=== PATIENT | female | born 1935 | race Caucasian/White ===

== ENCOUNTER 2018-09-09 15:36 | Emergency (ER) | payer MEDICARE, OTHER ==
[~2018-09-09] VITALS: Ht 162.6 cm; Wt 73.4 kg
[~2018-09-09 15:36] MED LIST: CARV12.579 PO; FURO-110 PO; METF500T24 PO; PIOG30TA12 PO; POTA8TAB2 PO
[2018-09-09 16:36] VITALS: Ht 162.6 cm; Wt 73.4 kg
[2018-09-09] MEDS ORDERED: APIX2.5T PO (20:14)
[2018-09-09] MEDS ORDERED: EMPA10TA PO (20:14)
[2018-09-09] MEDS ORDERED: LISI-471 PO (20:15)
[2018-09-09] MEDS ORDERED: CARV12.579 PO (20:15)
[2018-09-09] MEDS ORDERED: METF500T24 PO (20:16)
[2018-09-09] MEDS ORDERED: METF850T13 PO (20:16)
[2018-09-09] MEDS ORDERED: FURO20TA3 PO (20:17)
[2018-09-09] MEDS ORDERED: SITA100T11 PO (20:17)
[2018-09-09] MEDS ORDERED: POTA8CAP PO (20:18)
--- NOTE | 2018-09-09 21:02 | ERD ---
ER Documentation Chief Complaint Chief Complaint per dtr pt is forgetful x2 days; pt awake/alert/orientedx3/ambulatory HPI Patient is an 83-year-old female with CHF and diabetes who presents with confusion. The patient is having some short-term memory issues per the daughter. She sometimes forgets what date it is. This started a few months ago. She was seen by the primary doctor today who sent the patient to the emergency department. The patient has no history of dementia and no pain. Upon review of old medical records this is the patient's second visit to the ER since 2012. She does have a primary doctor. ROS All systems reviewed and are negative except as per history of present illness. Medications Home Meds Reported Medications Potassium Chloride* (Potassium Chloride*) Unknown Strength Capsule.er, 1 TAB PO DAILY, CAP 09/09/18 Furosemide* (Furosemide*) 20 Mg Tablet, 20 MG PO DAILY, #60 TAB 09/09/18 Sitagliptin* (Januvia*) 100 Mg Tablet, 100 MG PO DAILY, #30 TAB 09/09/18 Metformin Hcl* (Metformin Hcl*) 850 Mg Tablet, 850 MG PO WITH BREAKFAST DINNE, #60 TAB 09/09/18 Carvedilol* (Carvedilol*) 12.5 Mg Tablet, 12.5 MG PO DAILY, #60 TAB 09/09/18 Lisinopril* (Lisinopril*) 20 Mg Tablet, 20 MG PO DAILY, #30 TAB 09/09/18 Apixaban* (Eliquis*) 2.5 Mg Tablet, 2.5 MG PO BID, TAB 09/09/18 Empagliflozin (Jardiance) 10 Mg Tablet, 10 MG PO DAILY, TAB 09/09/18 Discontinued Reported Medications Metformin Hcl* (Metformin Hcl*) 500 Mg Tablet, 500 MG PO WITH BREAKFAST DINNE, #60 TAB 09/09/18 Metformin Hcl* (Metformin Hcl*) 500 Mg Tablet, 500 MG PO BID 01/30/13 Carvedilol* (Carvedilol*) 12.5 Mg Tablet, 12.5 MG PO DAILY 01/30/13 Potassium Chloride* (Klor-Con*) 8 Meq Tablet.sa, 8 MEQ PO DAILY 01/30/13 Furosemide* (Lasix*) 20 Mg Tablet, 20 MG PO DAILY 01/30/13 Pioglitazone Hcl* (Actos*) 30 Mg Tablet, 30 MG PO DAILY 01/30/13 Allergies Allergies: Coded Allergies: codeine (Verified Allergy, Mild, 09/09/18) PMhx/Soc History of Surgery: No Anesthesia Reaction: No Hx Neurological Disorder: No Hx Respiratory Disorders: No Hx Cardiac Disorders: Yes (HTN) Hx Psychiatric Problems: No Hx Miscellaneous Medical Probl: No Hx Alcohol Use: No Hx Substance Use: No Hx Tobacco Use: No Smoking Status: Never smoker FmHx Family History: diabetes Physical Exam Vitals Vital Signs Date Temp Pulse Resp B/P (MAP) Pulse Ox O2 O2 Flow FiO2 Time Delivery Rate 09/09/18 97.5 73 14 162/72 97 21:04 (102) 09/09/18 97.5 67 14 168/88 97 20:22 (114) 09/09/18 97.5 80 20 199/70 97 19:15 (113) 09/09/18 97.5 77 20 158/75 97 18:56 (102) 09/09/18 97.5 70 20 158/75 97 16:36 (102) Physical Exam Const: No acute distress Head: Atraumatic Eyes: Normal Conjunctiva ENT: Normal External Ears, Nose and Mouth. Neck: Full range of motion. No meningismus. Resp: Clear to auscultation bilaterally Cardio: Regular rate and rhythm, no murmurs Abd: Soft, non tender, non distended. Normal bowel sounds Skin: No petechiae or rashes Back: No midline or flank tenderness Ext: No cyanosis, or edema Neur: Awake and alert, awake alert and oriented x3, no slurred speech, cranial nerves II through XII are intact, strength is 5 out of 5 in all 4 extremities Psych: Normal Mood and Affect Result Diagram: 09/09/18193909/09/181939 Results 24 hrs Laboratory Tests Test 09/09/18 19:10 09/09/18 19:35 09/09/18 19:40 Urine Color YELLOW Urine Clarity CLEAR Urine pH 5.0 Urine Specific [place] 1.018 Urine Ketones TRACE mg/dL Urine Nitrite NEGATIVE mg/dL Urine Bilirubin NEGATIVE mg/dL Urine Urobilinogen NEGATIVE mg/dL Urine Leukocyte Esterase NEGATIVE Fannie/ul Urine Hemoglobin NEGATIVE mg/dL Urine Glucose 3+ mg/dL Urine Total Protein NEGATIVE mg/dl Urine Opiates Screen NEGATIVE Urine Barbiturates NEGATIVE Urine Amphetamines Screen NEGATIVE Urine Benzodiazepines Screen NEGATIVE Urine Cocaine Screen NEGATIVE Urine Cannabinoids NEGATIVE Bedside Glucose 132 mg/dL White Blood Count 7.2 10^3/ul Red Blood Count 4.76 10^6/ul Hemoglobin 11.7 g/dl Hematocrit 38.6 % Mean Corpuscular Volume 81.1 fl Mean Corpuscular Hemoglobin 24.6 pg Mean Corpuscular 30.3 g/dl Hemoglobin Concent Red Cell Distribution Width 15.7 % Platelet Count 175 10^3/UL Mean Platelet Volume 12.6 fl Immature Granulocytes % 0.400 % Neutrophils % 64.8 % Lymphocytes % 16.3 % Monocytes % 11.6 % Eosinophils % 5.5 % Basophils % 1.4 % Nucleated Red Blood Cells % 0.0 /100WBC Immature Granulocytes # 0.030 10^3/ul Neutrophils # 4.7 10^3/ul Lymphocytes # 1.2 10^3/ul Monocytes # 0.8 10^3/ul Eosinophils # 0.4 10^3/ul Basophils # 0.1 10^3/ul Nucleated Red Blood Cells # 0.0 10^3/ul Prothrombin Time 14.0 Sec Prothrombin Time Ratio 1.1 INR International 1.07 Normalized Ratio Activated Partial Thromboplast 35.0 Sec Time Sodium Level 140 mmol/L Potassium Level 3.8 mmol/L Chloride Level 101 mmol/L Carbon Dioxide Level 27 mmol/L Anion Gap 12 Blood Urea Nitrogen 17 mg/dl Creatinine 0.65 mg/dl Est Glomerular Filtrat mL/min Rate mL/min Glucose Level 127 mg/dl Hemoglobin A1c 8.5 % Calcium Level 9.8 mg/dl Troponin I 0.015 ng/ml Triglycerides Level 146 mg/dl Cholesterol Level 180 mg/dl LDL Cholesterol, Calculated 101 mg/dl HDL Cholesterol 50 mg/dl Cholesterol/HDL Ratio 3.6 RATIO Procedures/MDM EKG read by me: Rate/Rhythm: Bifascicular block at a rate of 70 Intervals: Prolonged QTC Impression: Fascicular block CT brain read by radiology. Chest x-ray read by radiology. Patient is a 83-year-old female who presents with short-term memory issues. She is awake alert and oriented x3 in the emergency department and very pleasant without signs of stroke. Workup was basically negative including laboratory studies, chest x-ray, and CT scan of the brain. I do not believe the patient requires admission to the hospital at this time. I doubt stroke or mass. I doubt acute cystitis or sepsis. The patient will be discharged but will need to follow-up closely with her primary doctor. She can return sooner for any worsening symptoms. The patient understands the plan and is okay for discharge at this time she is being discharged into the care of her daughter. Departure Diagnosis: Primary Impression: Altered level of consciousness Condition: Fair Patient Instructions: Altered Loc Referrals: Your doctor Additional Instructions: Call your primary care doctor TOMORROW for an appointment during the next 1-2 days.See the doctor sooner or return here if your condition worsens before your appointment time. CHRISTINA TORRES MD Sep 09, 2018 21:02
[2018-09-09 21:04] VITALS: BP 162/72; PULSE 73; RESP 14
== END 2018-09-09 21:17 | disposition home or self-care (01) ==
LOC: E/R 15:36
DX: R41.82 Altered mental status, unspecified (principal); I11.0 Hypertensive heart disease with heart failure; I50.9 Heart failure, unspecified; E11.9 Type 2 diabetes mellitus without complications; Z79.84 Long term (current) use of oral hypoglycemic drugs
CPT/HCPCS: 36415; 70450; 71045; 80048; 80061; 80307; 81003; 82962; 83036; 84484; 85025; 85610; 85730; 93005